=== PATIENT | female | born 1995 | race Caucasian/White ===

== ENCOUNTER 2018-12-25 14:22 | Emergency (ER) | payer OTHER ==
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
[2018-12-25] MEDS ORDERED: ACETAMINOPHEN 500 MG TAB PO ONE (16:01)
[2018-12-25 16:43] VITALS: BP 106/75
== END 2018-12-25 16:48 | disposition home or self-care (01) ==
DX: S06.0X9A Concussion with loss of consciousness of unspecified duration, initial encounter (principal); V42.5XXA Car driver injured in collision with two- or three-wheeled motor vehicle in traffic accident, initial encounter; Y92.410 Unspecified street and highway as the place of occurrence of the external cause; Y99.9 Unspecified external cause status; Y93.9 Activity, unspecified